=== PATIENT | female | born 1985 | race Caucasian/White ===

== ENCOUNTER 2024-11-20 09:49 | Outpatient (CLI) | payer BC, SELFPAY ==
[2024-11-20 14:05] LABS: Strep A DNA Probe* NOT DETECTED (Not Detectd)
[2024-11-20 14:13] LABS: PCR FLU A Negative PCR FLU A (Negative); PCR FLU B POSITIVE PCR FLU B (Negative); SARS PCR* Negative SARS-CoV-2 (Negative)
== END 2024-11-20 09:50 | disposition home or self-care (01) ==
PROVIDERS: Visit Provider Nurse Practitioner Family
DX: R50.9 Fever, unspecified (principal)
CPT/HCPCS: 85025; 87631; 87651